=== PATIENT | male | born 2000 | race Hispanic/Latino ===

== ENCOUNTER 2021-03-22 14:50 | Emergency (ER) | payer BC, OTHER ==
--- NOTE | 2021-03-22 16:35 | RAD REPORT ---
EXAM DESCRIPTION: RAD - Chest Single View - 03/22/2021 4:11 pm CLINICAL HISTORY: PALPITATIONS COMPARISON: No comparisons FINDINGS: Lines: None. Lungs: No evidence of edema or pneumonia. Pleural: No significant pleural effusions or pneumothorax. Cardiac: The heart size is within normal limits. Bones: No acute fractures. Other: IMPRESSION: No acute cardiopulmonary disease.
[2021-03-22 17:15] LABS: Absolute Lymphocytes (CBC) 2.3 K/uL (0.7-4.9); Hematocrit 42.6 % (39.6-49.0); Lymphocytes % 36.3 % (15.3-44.8); MPV 8.4 fL (7.6-11.3); RBC Red Blood Cell Count 4.65 M/uL (4.33-5.43)
[2021-03-22 17:16] LABS: Protime INR 1.03
[2021-03-22 17:41] LABS: ALT/SGPT 19 U/L (12-78); AST/SGOT 11 U/L (15-37); Albumin 4.4 g/dL (3.4-5.0); Alkaline Phosphatase 49 U/L (45-117); BUN Blood Urea Nitrogen 19 mg/dL (7-18); Bicarbonate 27 mmol/L (21-32); Bilirubin Direct 0.2 mg/dL (0-0.2); Glucose Level 97 mg/dL (74-106); Magnesium 2.2 mg/dL (1.8-2.4); Potassium 3.8 mmol/L (3.5-5.1); Protein, Total 7.5 g/dL (6.4-8.2); Sodium Level 141 mmol/L (136-145); Thyroid Stimulating Hormone 0.813 uIU/mL (0.360-3.740); Troponin (Emerg Dept Use Only) < 0.02 ng/mL (0.0-0.045)
[2021-03-22 17:43] LABS: NT PRO-BNP < 5 pg/mL (<125)
--- NOTE | 2021-03-22 17:56 | ER ---
Nurse's Notes [facility] Name: Cresencio Bobo Age: 20 yrs Sex: Male : 2000 Arrival Date: 03/22/2021 Time: 14:51 Bed 6 Private MD: Diagnosis: Palpitations Presentation: 03/22 15:37 Chief complaint: Patient states: Went to doctor last week. Found low thyroid and ll1 abnormal EKG, and was told to come to ER today. CP, palpitations, shaky, anxious for months. Coronavirus screen: Vaccine status: Patient reports being unvaccinated. Client denies travel out of the [place] in the last 14 days. At this time, the client does not indicate any symptoms associated with coronavirus-19. Ebola Screen: Patient denies travel to an Ebola-affected area in the 21 days before illness onset. Initial Sepsis Screen: Does the patient meet any 2 criteria? HR > 90 bpm. No. Patient's initial sepsis screen is negative. Does the patient have a suspected source of infection? No. Patient's initial sepsis screen is negative. Risk Assessment: Do you want to hurt yourself or someone else? Patient reports no desire to harm self or others. Onset of symptoms was September 16, 2020. 15:37 Method Of Arrival: Ambulatory ll1 15:37 Acuity: CARMEN 3 ll1 Triage Assessment: 15:45 General: Appears in no apparent distress. comfortable, slender, Behavior is bp cooperative, appropriate for age, anxious. Pain: Denies pain. EENT: No deficits noted. Neuro: No deficits noted. Cardiovascular: Reports palpitations. Respiratory: No deficits noted. GI: No signs and/or symptoms were reported involving the gastrointestinal system. : No signs and/or symptoms were reported regarding the genitourinary system. Derm: No deficits noted. Musculoskeletal: No deficits noted. Historical: - Allergies: 15:39 Bactrim; ll1 - PMHx: 15:39 None; ll1 - PSHx: 15:39 wrist SX; ll1 - Immunization history:: Client reports having NOT received the Covid vaccine. Flu vaccine status is unknown. - Social history:: Smoking status: Patient denies any tobacco usage or history of. Screenin:00 Abuse screen: Denies threats or abuse. Denies injuries from another. Nutritional bp screening: No deficits noted. Tuberculosis screening: No symptoms or risk factors identified. Fall Risk None identified. Assessment: 16:00 General: SEE TRIAGE NOTE. bp 18:27 Reassessment: PT D/C HOME AMBULATORY, DX WITH PALPITATIONS. bp Vital Signs: 15:37 BP 146 / 101; Pulse 129; Resp 18; Temp 98.8; Pulse Ox 100% ; Weight 53.52 kg; Height 5 ll1 ft. 10 in. (177.80 cm); Pain 5/10; 16:00 BP 119 / 86; Pulse 97; Resp 10; Pulse Ox 99% ; bp 18:00 BP 139 / 86; Pulse 82; Resp 13; Pulse Ox 99% ; bp 15:37 Body Mass Index 16.93 (53.52 kg, 177.80 cm) ll1 ED Course: 14:51 Patient arrived in ED. ds1 15:39 Triage completed. ll1 15:40 Arm band placed on. ll1 15:42 Stacy Rubi FNP-C is [facility]. kb 15:42 Roger Davila MD is Attending Physician. kb 15:56 Jonh Greenwood, RN is Primary Nurse. bp 16:00 Patient has correct armband on for positive identification. Placed in gown. Bed in low bp position. Call light in reach. Side rails up X2. 16:11 XRAY Chest (1 view) In Process Unspecified. EDMS 18:31 No provider procedures requiring assistance completed. IV discontinued, intact, bp bleeding controlled, No redness/swelling at site. Pressure dressing applied. Administered Medications: No medications were administered Outcome: 17:55 Discharge ordered by . kb 18:31 Discharged to home ambulatory, with family. bp 18:31 Condition: stable 18:31 Discharge instructions given to patient, family, Instructed on discharge instructions, follow up and referral plans. Demonstrated understanding of instructions, follow-up care. 18:31 Patient left the ED. bp Signatures: Dispatcher [employer] EDMS Stacy Rubi FNP-C FNP-Ckb [place]ford, Demi ds1 Jonh Greenwood, RN RN Warren Rider RN RN ll1
--- NOTE | 2021-03-22 17:56 | EDPHYS ---
Physician Documentation [facility] Name: Cresencio Bobo Age: 20 yrs Sex: Male : 2000 Arrival Date: 03/22/2021 Time: 14:51 Bed 6 Private MD: ED Physician Roger Davila HPI: 03/22 16:20 This 20 yrs old Male presents to ER via Ambulatory with complaints of Abnormal kb EKG. 16:20 The patient presents with a history of heart racing. Context: The symptoms occur at kb rest. Onset: The symptoms/episode began/occurred 6 month(s) ago. Duration: The patient or guardian reports multiple episodes, that are intermittent, with no pattern. Modifying factors: The symptoms are aggravated by nothing. The symptoms are alleviated by nothing. Associated signs and symptoms: Pertinent positives: anxiety, chest pain, Pertinent negatives: cough, fever, lightheadedness, nausea, SOB, syncope, near-syncope, unusual stressors, vertigo, vomiting. Severity of symptoms: At their worst the symptoms were mild moderate in the emergency department the symptoms are unchanged. The patient has not experienced similar symptoms in the past. The patient has not recently seen a physician. Pt states he has had episodes of palpitations, chest pain, diaphoresis and anxiety for 6 months. Went to PCP on 03/15/21 and had EKGs done. Got a call from PCP today and was told to come to the ER for abnormal EKG. . Historical: - Allergies: 15:39 Bactrim; ll1 - PMHx: 15:39 None; ll1 - PSHx: 15:39 wrist SX; ll1 - Immunization history:: Client reports having NOT received the Covid vaccine. Flu vaccine status is unknown. - Social history:: Smoking status: Patient denies any tobacco usage or history of. ROS: 16:17 Constitutional: Negative for fever, chills, and weight loss. kb 16:17 Cardiovascular: Positive for chest pain, palpitations, Negative for edema, orthopnea, paroxysmal nocturnal dyspnea. 16:17 Psych: Positive for anxiety. 16:17 All other systems are negative. Exam: 16:18 Constitutional: This is a well developed, well nourished patient who is awake, alert, kb and in no acute distress. Head/Face: Normocephalic, atraumatic. ENT: Moist Mucous membranes Respiratory: Respirations even and unlabored. No increased work of breathing. Talking in full sentences Abdomen/GI: Soft, non-tender. No distention Skin: Warm, dry with normal turgor. Normal color. MS/ Extremity: Pulses equal, no cyanosis. Neurovascular intact. Full, normal range of motion. Neuro: Awake and alert, GCS 15, oriented to person, place, time, and situation. Moves all extremities. Normal gait. Psych: Awake, alert, with orientation to person, place and time. Behavior, mood, and affect are within normal limits. 16:18 Cardiovascular: Rate: tachycardic, Rhythm: regular, Pulses: no pulse deficits are appreciated. Vital Signs: 15:37 BP 146 / 101; Pulse 129; Resp 18; Temp 98.8; Pulse Ox 100% ; Weight 53.52 kg; Height 5 ll1 ft. 10 in. (177.80 cm); Pain 5/10; 16:00 BP 119 / 86; Pulse 97; Resp 10; Pulse Ox 99% ; bp 18:00 BP 139 / 86; Pulse 82; Resp 13; Pulse Ox 99% ; bp 15:37 Body Mass Index 16.93 (53.52 kg, 177.80 cm) ll1 MDM: 15:42 Data reviewed: vital signs, nurses notes. Data interpreted: Pulse oximetry: on room air kb is 100 %. Interpretation: normal. 15:43 Patient medically screened. kb 17:54 Counseling: I had a detailed discussion with the patient and/or guardian regarding: the kb historical points, exam findings, and any diagnostic results supporting the discharge/admit diagnosis, lab results, radiology results, the need for outpatient follow up, a family practitioner, to return to the emergency department if symptoms worsen or persist or if there are any questions or concerns that arise at home. 17:54 ED course: Educated on need for further evaluation by lab tech. . kb 03/22 15:53 Order name: Basic Metabolic Panel; Complete Time: 17:47 kb 03/22 15:53 Order name: CBC with Diff; Complete Time: 17:21 kb 03/22 15:53 Order name: LFT's; Complete Time: 17:47 kb 03/22 15:53 Order name: Magnesium; Complete Time: 17:47 kb 03/22 15:53 Order name: NT PRO-BNP; Complete Time: 17:47 kb 03/22 15:53 Order name: PT-INR; Complete Time: 17:21 kb 03/22 15:42 Order name: EKG; Complete Time: 15:43 kb 03/22 15:53 Order name: Troponin (emerg Dept Use Only); Complete Time: 17:47 kb 03/22 15:53 Order name: XRAY Chest (1 view); Complete Time: 16:37 kb 03/22 15:53 Order name: TSH; Complete Time: 17:47 kb 03/22 15:53 Order name: T4 Free; Complete Time: 17:47 kb 03/22 15:53 Order name: D-Dimer; Complete Time: 17:21 kb Administered Medications: No medications were administered Disposition: 03/23 07:14 Co-signature as Attending Physician, Roger Davila MD. rn Disposition Summary: 03/22/21 17:55 Discharge Ordered Location: Home kb Condition: Stable kb Diagnosis - Palpitations kb Followup: kb - With: Emergency Department - When: As needed - Reason: Worsening of condition Followup: kb - With: Private Physician - When: 2 - 3 days - Reason: Recheck today's complaints, Continuance of care, Re-evaluation by your physician Discharge Instructions: - Discharge Summary Sheet kb - Palpitations, [id number] kb Forms: - Medication Reconciliation Form kb - Thank You Letter kb - Antibiotic Education kb - Prescription Opioid Use kb Signatures: Dispatcher [employer] Stacy Rocha, [employer]-C [employer]ER-Ckb Roger Davila MD MD rn Lewis, Lynsay RN RN ll1
[2021-03-22 18:55] VITALS: TEMP 98.8
[2021-03-22 18:56] VITALS: O2SAT 99
[2021-03-22 18:57] VITALS: BP 139/86
--- NOTE | 2021-03-23 11:23 | EKG ---
Test Date: 2021-03-22 Test Time: 17:03:55 Assistant Director Of Financial Aid: MEASUREMENT RESULTS: Intervals: Rate: 89 [place]: 152 QRSD: 100 QT: 342 QTc: 416 [place]: P: 80 [place]: 152 QRS: 95 T: 76 INTERPRETIVE STATEMENTS: Normal sinus rhythm Rightward axis Pulmonary disease pattern Abnormal ECG Compared to ECG 03/15/2021 13:34:17 Sinus tachycardia no longer present Myocardial infarct finding no longer present Electronically Signed On 03-23-21 11:22:18 EXTRUSION FORMER by Jules Valladares
== END 2021-03-22 18:31 | disposition home or self-care (01) ==
LOC: ER 14:50
DX: R00.2 Palpitations (principal); F41.9 Anxiety disorder, unspecified; Z88.1 Allergy status to other antibiotic agents
CPT/HCPCS: 36415; 71045; 80048; 80076; 83735; 83880; 84439; 84443; 84484; 85025; 85379; 85610; 93005; 99283